=== PATIENT | female | born 1960 | race Caucasian/White ===

== ENCOUNTER → 2016-12-15 | Outpatient (CLI) | payer BC ==
[2015-10-01 16:10] VITALS: BP 124/61
[~2016-12-15] MED LIST: METH10CP3 PO; PRED20TA PO; TRAM50TA PO
--- NOTE | 2016-12-15 12:35 | RAD ---
Indication knot on the left clavicle for years. 2 views of the left clavicle were obtained. No bony abnormality is seen.
--- NOTE | 2016-12-15 13:07 | RAD ---
Indication neck pain. AP and lateral views of the cervical spine were obtained as well as an odontoid view. C1-T1 are identified. There is disc space narrowing at C5-6. There is very minimal anterolisthesis of C4 relative to C5. An acute finding is not seen. The prevertebral soft tissues appear unremarkable. IMPRESSION: Mild spondylitic changes. No acute finding seen
== END | disposition home or self-care (01) ==
LOC: DXRADRC 12:04
PROVIDERS: ATTEND Nurse Practitioner Family
DX: M47.892 Other spondylosis, cervical region (principal); G62.9 Polyneuropathy, unspecified; R22.9 Localized swelling, mass and lump, unspecified
CPT/HCPCS: 72040; 73000

== ENCOUNTER → 2016-12-22 | Outpatient (CLI) | payer BC ==
[2015-10-01 16:10] VITALS: BP 124/61
--- NOTE | 2016-12-22 09:15 | RAD ---
Left chest wall ultrasound, 12/22/2016: History: Sternoclavicular region lump The chest wall at the left sternoclavicular level was carefully scanned in the area of reported concern. The soft tissues are unremarkable. No mass is seen. CT scanning would best delineate the osseous structures at the sternoclavicular joint level, if clinically indicated.
--- NOTE | 2016-12-22 10:08 | RAD ---
DATE: 12/22/2016 EXAM: MAMMO ANGELY SCREENING BILATERAL HISTORY: Routine screening COMPARISON: 10/20/2015 This study was interpreted with the benefit of Computerized Aided Detection (CAD). The breast parenchyma is heterogeneously dense, which could reduce sensitivity of mammography. Breast parenchyma level C. FINDINGS: 2-D and 3-D tomosynthesis imaging was performed in CC and MLO projections. No new or enlarging breast densities are seen. A few faint scattered microcalcifications are again noted. No suspicious microcalcifications have developed. IMPRESSION: Stable mammograms without evidence of malignancy. BI-RADS CATEGORY: 2 BENIGN FINDING(S) RECOMMENDED FOLLOW-UP: 12M 12 MONTH FOLLOW-UP PQRS compliance statement: Patient information was entered into a reminder system with a target due date for the next mammogram. Mammography is a sensitive method for finding small breast cancers, but it does not detect them all and is not a substitute for careful clinical examination. A negative mammogram does not negate a clinically suspicious finding and should not result in delay in biopsying a clinically suspicious abnormality. "Our facility is accredited by the [employer] Mammography Program."
== END | disposition home or self-care (01) ==
LOC: US 08:01
PROVIDERS: ATTEND Nurse Practitioner Family
DX: Z12.31 Encounter for screening mammogram for malignant neoplasm of breast (principal); R22.9 Localized swelling, mass and lump, unspecified
CPT/HCPCS: 76881; 77063; G0202; 77067

== ENCOUNTER → 2016-12-26 | Outpatient (CLI) | payer BC ==
[2015-10-01 16:10] VITALS: BP 124/61
--- NOTE | 2016-12-26 09:37 | RAD ---
Indication chronic chest wall pain. Noncontrast images of the chest were obtained. No prior imaging of the chest is available. There is a low-density mass in the right lobe of the thyroid. In all likelihood this is incidental. If further imaging evaluation is clinically warranted thyroid ultrasound could be performed. No significant hilar or mediastinal adenopathy is seen. No acute finding is apparent in the chest. There is no dominant soft tissue mass. No significant soft tissue finding in the chest wall is seen. IMPRESSION: Essentially unremarkable study. Probable small nodule in the right lobe of the thyroid. PQRS Compliance Statement: One or more of the following individualized dose reduction techniques were utilized for this examination: 1. Automated exposure control 2. Adjustment of the mA and/or kV according to patient size 3. Use of iterative reconstruction technique
== END | disposition home or self-care (01) ==
LOC: CT 08:04
PROVIDERS: ATTEND Nurse Practitioner Family
DX: R22.2 Localized swelling, mass and lump, trunk (principal)
CPT/HCPCS: 71250

== ENCOUNTER → 2016-12-30 | Outpatient (CLI) | payer BC ==
[2015-10-01 16:10] VITALS: BP 124/61
--- NOTE | 2016-12-30 10:38 | RAD ---
INDICATION: Thyroid nodule on chest CT COMPARISON: 12/26/2016 TECHNIQUE: Grayscale and color ultrasound images obtained of the thyroid. FINDINGS: Right Lobe: 5.3 x 1.5 x 1.4 cm. Left Lobe: 5.2 x 1.4 x 1.2 cm. Multiple bilateral thyroid nodules are identified with the largest on the right measuring 14 x 9 mm and largest on the left measuring 13 x 8 mm IMPRESSION: 1. Numerous bilateral thyroid nodules are identified with some having a cystic appearance and some having or complex solid component. Follow-up could be obtained in one year to ensure no growth.
== END | disposition home or self-care (01) ==
LOC: US 08:52
PROVIDERS: ATTEND Nurse Practitioner Family
DX: E04.1 Nontoxic single thyroid nodule (principal)
CPT/HCPCS: 76536